=== PATIENT | female | born 1980 | race Caucasian/White ===

== ENCOUNTER 2017-06-06 09:59 | Emergency (ER) | payer OTHER ==
[2017-06-06 10:16] VITALS: BP 120/74
--- NOTE | 2017-06-06 10:16 | ED Physician Documentation ---
Ear Complaints - HISTORIAN Historian: patient - HPI Stated Complaint: Left ear pain Chief Complaint: Ear Complaints Additional Information: This is a 36 year old female who is admitted with c/o left ear pain and sinus congestion. She is a smoker of less than 1 pack per day, but plans to quit after the first of the year. Timing: still present Location of Pain: both ears (L>R) Severity: mild Associated Symptoms: hearing loss (feels like sounds are muffled). denies: fever, chills, sharp pain, dull pain, trauma to ear - ROS CONST: no problems CVS/RESP: none GI/: denies: black stools, nausea MS/SKIN/LYMPH: denies: none NEURO/PSYCH: denies: weakness, numbness, anxiety, depression - PAST HX Past History: none Allergies/Adverse Reactions: Allergies Allergy/AdvReac Type Severity Reaction Status Date / Time nitrofurantoin AdvReac Unknown Rash Verified 06/06/17 10:14 [From Macrobid] nitrofurantoin AdvReac Unknown Rash Verified 06/06/17 10:14 macrocrystalline [From Macrobid] morphine AdvReac Hives Verified 06/06/17 10:14 Home Medications: Ambulatory Orders Medication Instructions Recorded NK [NK] 06/06/17 - SOCIAL HX Smoking History: cigarettes Alcohol Use: rarely Drug Use: none - VITAL SIGNS Vital Signs: Vital Signs Temp Pulse Resp BP Pulse Ox 128/58 09/29/15 14:32 - REVIEWED ASSESSMENTS Nursing Assessment Reviewed: Yes Vitals Reviewed: Yes Progress - Results/Orders Results/Orders: Rx for amoxicillin 500 mg PO TID sent to Ear Complaint Physical Exam - EXAM General Appearance: mild distress Ear: auricle nml, loss of landmarks, bulging of TM (Left with erythema). No: pain w movement of auricl, erythema, material in canal, cerumen, discharge, blood, foreign body Mouth/Throat: lips nml Nose: nml inspection Head/Neck: atraumatic Eye: eyes nml inspection Resp/CVS: chest non-tender, breath sounds nml Neuro/Psych: oriented x3, mood/affect nml Discharge Clincal Impression: Otitis media Referrals: Eileen Jerez PRN [Primary Care Provider] - 2 Days Disposition: HOME, SELF-CARE Decision to Admit: NO Decision Time: 14:30
[2017-06-06] MEDS ORDERED: AMOXICILLIN 500 MG CAPSULE PO SCH (13:00)
== END 2017-06-06 10:34 | disposition home or self-care (01) ==
LOC: ED 09:59
DX: H66.90 Otitis media, unspecified, unspecified ear (principal)
CPT/HCPCS: 99283

== ENCOUNTER 2017-11-28 22:13 | Emergency (ER) | payer OTHER ==
--- NOTE | 2017-11-28 23:09 | ED Physician Documentation ---
Sore Throat/Dental Pain - HISTORIAN Historian: patient, child - HPI Stated Complaint: sore throat Chief Complaint: Sore Throat Additional Information: sore throat onset 4-5 d ago-now son has similar Associated Symptoms: sore throat. denies: fever, chills, unable to swallow - ROS CONST: no problems CVS/RESP: none GI/: denies: problems urinating, nausea, vomiting MS/SKIN/LYMPH: denies: muscle aches, rash, leg swelling, ankle swelling NEURO/PSYCH: none - PAST HX Past History: none Allergies/Adverse Reactions: Allergies Allergy/AdvReac Type Severity Reaction Status Date / Time nitrofurantoin AdvReac Unknown Rash Verified 11/28/17 22:54 [From Macrobid] nitrofurantoin AdvReac Unknown Rash Verified 11/28/17 22:54 macrocrystalline [From Macrobid] morphine AdvReac Hives Verified 11/28/17 22:54 Home Medications: Ambulatory Orders Medication Instructions Recorded NK [NK] 06/06/17 - SOCIAL HX Smoking History: greater than 1 pack/day Alcohol Use: none Drug Use: none - FAMILY HX Family History: Yes (son has similar onset 1 day) - VITAL SIGNS Vital Signs: Vital Signs Temp Pulse Resp BP Pulse Ox 120/74 06/06/17 10:35 - REVIEWED ASSESSMENTS Nursing Assessment Reviewed: Yes Vitals Reviewed: Yes Sore throat Physical Exam - EXAM General Appearance: mild distress. No: anxious, lethargic, hyperventilating Head/Neck: head nml inspection, trachea midline, no lymphadenopathy. No: cervical lymphadenopathy Mouth/Throat: lips nml, gums nml, pharynx nml Ear/Nose: nml inspection Respiratory: no resp. distress, breath sounds nml CVS: reg. rate & rhythm, heart sounds nml Abdomen: soft, non-tender Extremities: non-tender, nml ROM Skin: warm/dry, normal color. No: cyanosis, diaphoresis Neuro/Psych: oriented x3, mood/affect nml Discharge Clincal Impression: viral pharyngitis Referrals: Eileen Jerez PRN [Primary Care Provider] - 2 Days Comments: home good health measures Condition: Good Disposition: 01 HOME, SELF-CARE Decision to Admit: NO Decision Time: 23:12
[2017-11-28 23:17] VITALS: BP 114/76
== END 2017-11-28 23:00 | disposition home or self-care (01) ==
LOC: ED 22:13
DX: J02.0 Streptococcal pharyngitis (principal)
CPT/HCPCS: 87070; 87880; 99283